=== PATIENT | female | born 1955 | race Caucasian/White ===

== ENCOUNTER 2021-01-07 11:18 | Day surgery (SDC) | payer MEDICARE, OTHER ==
[2021-01-07 11:44] VITALS: BP 111/69
[2021-01-07] MEDS ORDERED: MULT-1085 PO (12:09)
[2021-01-07] MEDS ORDERED: PROC-8 PO (12:09)
[2021-01-07] MEDS ORDERED: TOP100T PO (12:09)
[2021-01-07] MEDS ORDERED: ATOR20TA PO (12:09)
[2021-01-07] MEDS ORDERED: LOPE-144 (12:09)
[2021-01-07] MEDS ORDERED: Venlafaxine (12:09)
[2021-01-07] MEDS ORDERED: LORA10TA65 PO (12:09)
[2021-01-07] MEDS ORDERED: ONDA4TAB6 PO (12:09)
[2021-01-07] MEDS ORDERED: LAMO200T10 PO (12:09)
[2021-01-07] MEDS ORDERED: OXYC-150 PO (12:09)
[2021-01-07] MEDS ORDERED: ACYC200C PO (12:09)
[2021-01-07] MEDS ORDERED: LORazepam 0.5 MG tablet PO ONE (12:45)
[2021-01-07] MEDS ORDERED: LIDOcaine 1%/PF 5ML 10 MG/ML VIAL ONE (13:16)
[2021-01-07] MEDS ORDERED: fentaNYL/PF 50MCG/1 ML 2ML syringe ONE (13:17)
[2021-01-07] MEDS ORDERED: midazolam 2 mg/2 ml injection ONE (13:17)
[2021-01-07 14:00] VITALS: BP 102/79
[2021-01-07 14:15] VITALS: BP 115/73
[2021-01-07 14:30] VITALS: BP 120/70
[2021-01-07 14:45] VITALS: BP 119/67
[2021-01-07 15:00] VITALS: BP 121/68
== END 2021-01-07 15:15 | disposition home or self-care (01) ==
LOC: SSTAY O 11:18
PROVIDERS: ATTEND Radiology Diagnostic Radiology
DX: T82.598A Other mechanical complication of other cardiac and vascular devices and implants, initial encounter (principal); C50.111 Malignant neoplasm of central portion of right female breast
CPT/HCPCS: 36576; 77001; J2250; J3010; 99152; 99153